=== PATIENT | female | born 1990 | race American Indian/Alaskan Native ===

== ENCOUNTER 2018-08-30 10:55 | Outpatient (CLI) | payer MEDICAID ==
[2018-08-30] MEDS ORDERED: LACTATED RINGERS 500 ML IV ONE (11:02)
[2018-08-30 11:18] VITALS: BP 116/70
[2018-08-30 11:53] LABS: Bacteria,Urine 1+ /HPF (Negative); Bilirubin,Urine NEG (Negative); Blood,Urine NEG (Negative); Color,Urine Yellow (Yellow); Mucus,Urine FEW /HPF; Protein,Urine <15 mg/dL mg/dL (Negative)
[2018-08-30] MEDS ORDERED: VISTARIL PO ONE (12:45)
== END 2018-08-30 12:47 | disposition home or self-care (01) ==
LOC: TRG 10:55
PROVIDERS: ATTEND Obstetrics & Gynecology
DX: O47.03 False labor before 37 completed weeks of gestation, third trimester (principal); O24.419 Gestational diabetes mellitus in pregnancy, unspecified control; Z3A.37 37 weeks gestation of pregnancy
CPT/HCPCS: 81001; Q0177

== ENCOUNTER 2018-09-13 17:07 | Inpatient (IN) | payer MEDICAID ==
[2018-09-13] MEDS: LACTATED RINGERS 1,000 ML IV SCH ×2 (22:00→23:00)
--- NOTE | 2018-09-13 22:13 | History and Physical Report ---
History of Present Illness Date of examination: 09/13/18 Date of admission: 09/13/18 20:27 Chief complaint: Intense labor pains History of present illness: 28yo Fe GLO . Presents with regular contractions and SVE /-2. Pt received care at [facility]. records are not available. Pt Reports being co-managed with [facility]. Reports being told she is GDM (diet controlled)but has never checked her BS. Accucheck 88 on admission, denies any other issues with this . Reports GBS to be Negative. 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 denies: lives with family, smoking, alcohol abuse, prescription drug abuse - Obstetrical History Expected Date of Delivery: 09/16/18 Actual Gestation: 39 Week(s) 5 Day(s) : 5 (Pt "uncertain about number of pregnancies" ) Para: 1 Hx # Term Pregnancies: 1 Number of Pregnancies: 3 (Pt "thinks 20 weeks x2, 27 weeks) Number of Living Children: 1 Medications and Allergies Allergies Allergy/AdvReac Type Severity Reaction Status Date / Time No Known Allergies Allergy Verified 08/30/18 11:02 Home Medications Medication Instructions Recorded Confirmed Last Taken Type HYDROcodone/APAP 5-325 [Sweet 1 each PO Q8HR PRN #10 tablet 07/25/13 Unknown Rx 5-325 mg TAB] Review of Systems Eyes: normal appearance Cardiovascular: no chest pain, no shortness of breath Respiratory: no shortness of breath Breasts: normal Gastrointestinal: no nausea, no vomiting, no diarrhea, no constipation Genitourinary: normal appearance, no leakage of fluid Integumentary: no rash, no sores, no lesions Endocrine: other (GDM-diet controlled) - Vital Signs Vital signs: Vital Signs Pulse BP 88 111/69 09/13/18 17:27 09/13/18 17:27 Temp Pulse Resp BP Pulse Ox 99.0 F 90 18 125/63 100 09/13/18 21:44 09/13/18 21:44 09/13/18 21:54 09/13/18 21:44 09/13/18 21:54 - Physical Exam Breasts: Positive: normal Cardiovascular: Regular rate, Normal S1, Normal S2, No murmurs Lungs: Positive: Clear to auscultation, Normal air movement Abdomen: Positive: normal appearance, soft, normal bowel sounds. Negative: distention Genitourinary (Female): Positive: normal external genitalia, normal perenium Vulva: right: normal Vagina: Positive: normal moisture Uterus: Positive: enlarged (gravid) Anus/Rectum: Positive: normal perianal skin Extremities: Positive: normal Deep Tendon Reflex Grade: Normal +2 - Obstetrical FHR: category 1 Uterine Contraction Monitor Mode: External Cervical Dilatation: 4 (Per senior biostatistician) Cervical Effacement Percentage: 80 station: -2 Uterine Contraction Frequency (min): 2-3 Uterine Contraction Pattern: Regular Uterine Tone Measurement Phase: Resting Uterine Contraction Intensity: Moderate Results Result Diagrams: 09/13/18 22:58 All other labs normal. Assessment and Plan A: Term IUP at 39w5d Active labor GBS Negative (Per pt) Category 1 tracing GDM; diet controlled (per pt). BS 88 on admission P: Admit to L&D, routine labor orders May have IV pain med/Epidural PRN Anticipate
[2018-09-13] MEDS ORDERED: SUBLIMAZE IV PRN (22:47)
[2018-09-13] MEDS ORDERED: LACTATED RINGERS 2,000 ML ONE (22:51)
[2018-09-13 23:37] LABS: Basophils % (Auto) 0.4 % (0.0-1.8); Eosinophils # (Auto) 0.3 K/mm3 (0.0-0.4); Eosinophils % (Auto) 3.5 % (0.0-4.3); Hematocrit 28.9 % (30.3-42.9); Hemoglobin 9.6 gm/dl (10.1-14.3); Lymphocytes # (Auto) 1.4 K/mm3 (1.2-5.4); Lymphocytes % (Auto) 15.6 % (13.4-35.0); Mean Corpuscular HGB Conc 33 % (30-34); Mean Corpuscular Volume 79 fl (79-97); Monocytes # (Auto) 0.9 K/mm3 (0.0-0.8); Monocytes % (Auto) 9.5 % (0.0-7.3); Platelet Count 132 K/mm3 (140-440); Red Blood Count 3.67 M/mm3 (3.65-5.03); Red Cell Distribution Width 15.6 % (13.2-15.2)
[2018-09-13] MEDS ORDERED: fentaNYL-BUPIV 2 MCG/ML-0.125% 200 MCG/100 ML BAG EPIDURAL SCH (23:45)
[2018-09-13] MEDS ORDERED: NARCAN 2 MG/2 ML IV PRN (23:54)
--- NOTE | 2018-09-13 23:57 | Anesthesia Consultation ---
Anesthesia Consult and Med Hx - Airway Anesthetic Teeth Evaluation: Good ROM Head & Neck: Adequate Mental/Hyoid Distance: Adequate Mallampati Class: Class I Intubation Access Assessment: Probably Good - Pulmonary Exam CTA: Yes - Cardiac Exam Cardiac Exam: RRR - Pulmonary Hx Asthma: No COPD: No Hx Pneumonia: No - Cardiovascular System Hx Hypertension: No Hx Coronary Artery Disease: No - Central Nervous System Hx Neuromuscular Disorder: No Hx Seizures: No Hx Psychiatric Problems: No - Gastrointestinal Hx Ulcer: No - Endocrine Hx Renal Disease: No Hx End Stage Renal Disease: No Hx Cirrhosis: No Hx Liver Disease: No Hx Insulin Dependent Diabetes: No Hx Non-Insulin Dependent Diabetes: No Hx Hypothyroidism: No Hx Hyperthyroidism: No - Hematic Hx Anemia: No Hx Sickle Cell Disease: No - Other Systems Hx Alcohol Use: No Hx Obesity: No
[2018-09-14] MEDS: LACTATED RINGERS 1,000 ML IV SCH
[2018-09-14 00:04] LABS: Hepatitis C Virus Antibody Non-Reactive (NonReactive)
[2018-09-14] MEDS ORDERED: LIDOCAINE 1.5%/EPI 1:200,000 INFILTRATI ONE ×2 (00:08)
[2018-09-14] MEDS ORDERED: LACTATED RINGERS 1,000 ML ONE (00:37)
[2018-09-14] MEDS ORDERED: PITOCin/NS 30 UNIT/500ML 30,000 MILLIUNITS/500 ML BAG IV ONE (00:45)
[2018-09-14 01:31] LABS: Amphetamine Screen,Urine PRESUMPTIVE NEGATIVE; Benzodiazepines Screen,Urine PRESUMPTIVE NEGATIVE; Cocaine Screen,Urine PRESUMPTIVE NEGATIVE; Methadone Screen,Urine PRESUMPTIVE NEGATIVE; Opiate Screen,Urine PRESUMPTIVE NEGATIVE
[2018-09-14] MEDS ORDERED: ZOFRAN ONE (01:44)
[2018-09-14 01:56] LABS: Cannabinoid Screen,Urine PRESUMPTIVE POSITIVE
[2018-09-14] MEDS ORDERED: NACL 0.9% 1000 ML 0 ML ONE (02:24)
--- NOTE | 2018-09-14 05:56 | Procedure Note ---
OB Delivery Note - Delivery Date of Delivery: 09/14/18 (04:27) Surgeon: ARTURO OWENS (AMAN) Estimated blood loss: 100cc - Vaginal Delivery presentation: vertex Delivery position: OA Delivery induction: none Delivery augmentation: rupture of membranes, pitocin Delivery monitor: external FHT, external uterine Route of delivery: (04:27) Delivery placenta: spontaneous (04:32) Delivery cord: 3 umbilical vessels Episiotomy: none Delivery laceration: none Anesthesia: epidural Delivery comments: Viable female infant A[place]IN position over intact perineum at 04:27. Strong lusty cry. Infant [id number] on mothers abdomen. Delayed cord clamping, then cut by FOB with my guidance. Cord blood collected per protocol. Spontaneous hankins delivery of intact placenta at 04:32. 3VC. No tears or lacerations. FF@U-1. EBL 100cc. Placenta discarded. Infant and mother left in stable condition in L&D. - A at 1 minute: 8 at 5 minutes: 9 Gender: Female (2799 grams, 8lbs 6oz, 21")
[2018-09-14] MEDS ORDERED: ZOFRAN IV PRN (05:58)
[2018-09-14] MEDS ORDERED: TYLENOL PO PRN (05:58)
[2018-09-14] MEDS ORDERED: BENADRYL PO PRN (05:58)
[2018-09-14] MEDS ORDERED: PHENERGAN PO PRN (05:58)
[2018-09-14] MEDS ORDERED: MILK OF MAGNESIA PO PRN (05:58)
[2018-09-14] MEDS ORDERED: TUCKS PAD TP PRN (05:58)
[2018-09-14] MEDS ORDERED: DULCOLAX PR PRN (05:58)
[2018-09-14] MEDS ORDERED: LANSINOH TP PRN (05:58)
[2018-09-14] MEDS ORDERED: SODIUM CHLORIDE FLUSH SYRINGE 10 ML IV NR (06:00)
[2018-09-14] MEDS ORDERED: XYLOCAINE 2%/ EPI 1:200,000 INFILTRATI ONE (06:28)
[2018-09-14] MEDS: IBUPROFEN PO SCH ×3 (07:07→18:56)
--- NOTE | 2018-09-14 07:22 | Post Anesthesia Evaluation ---
- Post Anesthesia Evaluation Patient Participated: Yes Airway Patent: Yes Stable Respiratory Function: Yes Nausea/Vomiting: No Temp > 96.8F: Yes Pain Manageable: Yes Adequeate Hydration: Yes Anesthesia Complications: No Block Receding Appropriately: Yes Patient on Ventilator: No
[2018-09-14] MEDS: NORCO 5/325 PO PRN (21:48)
[2018-09-15] MEDS: IBUPROFEN PO SCH ×3 (01:42→16:27)
[2018-09-15 07:27] LABS: Hematocrit 25.2 % (30.3-42.9)
[2018-09-15] MEDS: NORCO 5/325 PO PRN ×2 (10:20→20:10)
--- NOTE | 2018-09-15 12:22 | Progress Note ---
Assessment and Plan A: day 1 S/P spontaneous vaginal delivery. Anemia secondary to and blood loss. Fatigue. Heart murmur. P: Iron supplementation ordered. Encouraged patient to get help when ambulating. Repeat H&H today. Hospitalist consult. Subjective - Subjective Date of service: 09/15/18 Principal diagnosis: day 1 S/P spontaneous vaginal delivery Interval history: day 1 S/P spontaneous vaginal delivery. Patient reports fatigue. She denies shortness of breath with rest or exertion. She denies chest pain or palpitations or dizziness. Patient denies cough, abdominal pain, leg pain, or heavy vaginal bleeding. Patient is voiding without difficulty; feels tired when she ambulates. Tolerating a regular diet without nausea or vomiting. She is anemic and iron supplements ordered. Patient reports: appetite normal, voiding normally, pain well controlled, flatus, ambulating normally, nauseated : doing well Objective - Vital Signs Latest vital signs: Vital Signs Temp Pulse Resp BP BP Pulse Ox 09/15/18 10:20 20 09/15/18 09:10 98.4 F 72 18 110/68 09/15/18 00:12 98.4 F 90 16 114/71 98 09/14/18 17:10 98.4 F 99 H 18 113/68 97 Intake and Output 09/14/18 09/15/18 09/15/18 23:59 07:59 15:59 Intake Total 1680 360 Output Total 450 400 Balance 1230 -40 Intake: Oral 960 360 Intake, Free Water 720 Output: Urine 450 400 Void 450 400 Other: Total, Intake Amount 480 360 Total, Output Amount 450 400 # Voids Void 3 - Exam Cardiovascular: Present: Regular rate, Normal S1, Normal S2, Other (Murmur heard) Lungs: Present: Clear to auscultation Abdomen: Present: normal appearance, soft. Absent: distention, tenderness, guarding, rigidity Uterus: Present: normal, firm, fundal height below umbilicus. Absent: bogginess, tenderness Extremities: Present: normal, edema (mild pedal edema bilaterally). Absent: tenderness - Labs Labs: Abnormal lab results 09/15/18 Range/Units 07:07 Hgb 8.0 L (10.1-14.3) gm/dl Hct 25.2 L (30.3-42.9) %
[2018-09-15] MEDS: FEOSOL PO SCH (13:47)
[2018-09-15 18:15] LABS: Hematocrit 26.9 % (30.3-42.9); Hemoglobin 8.5 gm/dl (10.1-14.3)
--- NOTE | 2018-09-15 19:01 | Consultation ---
History of Present Illness - Reason for Consult Consult date: 09/15/18 Cardiac murmur Requesting physician: ARTURO OWENS - History of Present Illness 28 YO Female with S/P . Consult placed by AMAN Owens for new onset heart murmur. Pt seen and evaluated in her room. Pt denies fever, chills, CP, Palpitatons, NVD, Dizziness, Syncope, Shortness of breath, cough, dypsnea on exertion, dypsnea at rest. No reported nursing events. Past History Past Medical History: No medical history, other (reviewed) Past Surgical History: No surgical history, Other (reviewed) Social history: no significant social history, single, IV drug use. denies: lives with family, smoking, alcohol abuse, prescription drug abuse Family history: no significant family history (reviewed) Medications and Allergies Allergies Allergy/AdvReac Type Severity Reaction Status Date / Time No Known Allergies Allergy Verified 08/30/18 11:02 Home Medications Medication Instructions Recorded Confirmed Last Taken Type HYDROcodone/APAP 5-325 [Ledbetter 1 each PO Q8HR PRN #10 tablet 07/25/13 Unknown Rx 5-325 mg TAB] Active Meds: Active Medications Acetaminophen (Tylenol) 650 mg PO Q4H PRN PRN Reason: Pain MILD(1-3)/Fever >100.5/MCQUEEN Acetaminophen/Hydrocodone Bitart (Ledbetter 5/325) 2 each PO Q6H PRN PRN Reason: Pain, Moderate (4-6) Last Admin: 09/15/18 10:20 Dose: 2 each Documented by: Bisacodyl (Dulcolax) 10 mg UT BID PRN PRN Reason: Constipation Diphenhydramine HCl (Benadryl) 25 mg PO Q6H PRN PRN Reason: Itching Ferrous Sulfate (Feosol) 325 mg PO BID DUGLAS Last Admin: 09/15/18 13:47 Dose: 325 mg Documented by: Oxytocin/Sodium Chloride (Pitocin/Ns 30 Unit/500ml) 30,000 milliunits in 500 mls @ 1 mls/hr IV DIRECT ONE; Protocol Stop: 10/04/18 20:44 Last Admin: 09/14/18 01:00 Dose: 2 milliunits/min, 2 mls/hr Documented by: Lactated Ringer's (Lactated Ringers) 1,000 mls @ 125 mls/hr IV DIRECT [facility] Last Admin: 09/14/18 00:00 Dose: 125 mls/hr Documented by: Ibuprofen (Motrin) 600 mg PO Q6HR [facility] Last Admin: 09/15/18 16:27 Dose: 600 mg Documented by: Magnesium Hydroxide (Milk Of Magnesia) 30 ml PO HS PRN PRN Reason: Constipation Multi-Ingredient Ointment (Lansinoh) 1 applic TP PRN PRN PRN Reason: Sore Nipples Ondansetron HCl (Zofran) 4 mg IV Q8H PRN PRN Reason: Nausea And Vomiting Promethazine HCl (Phenergan) 25 mg PO Q6H PRN PRN Reason: Nausea And Vomiting Witch Luisa/Glycerin (Tucks Pad) 1 each TP PRN PRN PRN Reason: Hemorrhoid/cleansing/soothing Review of Systems Constitutional: no weight loss, no weight gain, no fever, no chills Ears, nose, mouth and throat: no ear pain, no ear discharge, no tinnitis, no decreased hearing, no nose pain Breasts: no change in shape, no swelling, no mass Cardiovascular: no chest pain, no orthopnea, no palpitations, no rapid/irregular heart beat, no edema, no syncope, no lightheadedness, no shortness of breath, no dyspnea on exertion, no paroxysmal nocturnal dyspnea, no claudication, no phlebitis, no high blood pressure, no leg edema, no decreased exercise tolerance Respiratory: no cough, no cough with sputum, no excessive sputum, no hemoptysis, no shortness of breath Gastrointestinal: no abdominal pain, no vomiting, no diarrhea, no constipation Genitourinary Female: no pelvic pain, no flank pain, no menorrhagia, no dysuria, no urinary frequency, no urgency Rectal: no pain, no incontinence, no bleeding Musculoskeletal: no neck stiffness, no neck pain, no shooting arm pain, no arm numbness/tingling, no shooting leg pain, no leg numbness/tingling Integumentary: no rash, no pruritis, no redness, no sores, no wounds Neurological: no paralysis, no weakness, no parathesias, no numbness, no tingling Psychiatric: no anxiety, no memory loss, no change in sleep habits, no sleep disturbances, no insomnia, no hypersomnia, no change in appetite Endocrine: no cold intolerance, no heat intolerance, no polyphagia, no excessive thirst, no polydipsia, no polyuria Hematologic/Lymphatic: no easy bruising, no easy bleeding Allergic/Immunologic: no urticaria, no allergic rhinitis, no wheezing Exam - Constitutional Vitals: Temp Pulse Resp BP Pulse Ox 98.2 F 87 20 113/58 98 09/15/18 16:15 09/15/18 16:15 09/15/18 16:27 09/15/18 16:15 09/15/18 00:12 General appearance: Present: no acute distress, well-nourished - EENT Eyes: Present: PERRL ENT: hearing intact, clear oral mucosa - Neck Neck: Present: supple, normal ROM - Respiratory Respiratory effort: normal Respiratory: bilateral: CTA - Cardiovascular Heart Sounds: Present: S1 & S2. Absent: rub, click - Extremities Extremities: pulses symmetrical, No edema Peripheral Pulses: within normal limits - Abdominal General gastrointestinal: Present: soft, non-tender, non-distended, normal bowel sounds Female genitourinary: Present: normal - Integumentary Integumentary: Present: clear, warm, dry - Musculoskeletal Musculoskeletal: gait normal, strength equal bilaterally - Psychiatric Psychiatric: appropriate mood/affect, intact judgment & insight - Neurologic Neurologic: CNII-XII intact, moves all extremities Results - Labs CBC & Chem 7: 09/15/18 17:46 Labs: Abnormal lab results 09/15/18 09/15/18 Range/Units 07:07 17:46 Hgb 8.0 L 8.5 L (10.1-14.3) gm/dl Hct 25.2 L 26.9 L (30.3-42.9) % Assessment and Plan - Patient Problems (1) Cardiac murmur Current Visit: Yes Status: Suspected Plan to address problem: Echo, monitor BP q shift, EKG.
[2018-09-16] MEDS: IBUPROFEN PO SCH ×3 (06:45→18:50)
--- NOTE | 2018-09-16 12:20 | Progress Note ---
Assessment and Plan A: day 2 S/P spontaneous vaginal delivery. Anemia secondary to and blood loss. Heart murmur. P: Continue iron supplementation. Plan discharge home when OK with MD. Subjective - Subjective Date of service: 09/16/18 Principal diagnosis: day 2 S/P spontaneous vaginal delivery Interval history: day 2 S/P spontaneous vaginal delivery. Patient is doing well. She reports a small amount of lochia and denies clots. She is voiding without difficulty, ambulating well, tolerating a regular diet without nausea or vomiting. Patient denies headache, dizziness, chest pain, shortness of breath, cough, leg pain, abdominal pain, or heavy vaginal bleeding. Patient states fatigue is resolving. Patient reports: appetite normal, voiding normally, pain well controlled, flatus, ambulating normally, no dizzy ambulation, no nauseated [place]: doing well Objective - Vital Signs Latest vital signs: Vital Signs Temp Pulse Resp BP BP Pulse Ox 09/16/18 09:10 98 F 70 20 110/60 09/16/18 00:14 97.8 F 73 17 112/62 98 09/15/18 16:27 20 09/15/18 16:15 98.2 F 87 18 113/58 Intake and Output 09/15/18 09/16/18 09/16/18 22:59 07:59 15:59 Intake Total 360 Output Total Balance 360 Intake: Oral 360 Output: Urine Void Other: Total, Intake Amount 360 Total, Output Amount # Voids Void 1 # Bowel Movements - Exam Cardiovascular: Present: Regular rate, Normal S1, Normal S2, Other (murmur) Lungs: Present: Clear to auscultation Abdomen: Present: normal appearance, soft. Absent: distention, tenderness, guarding, rigidity Uterus: Present: normal, firm, fundal height below umbilicus Extremities: Present: normal. Absent: tenderness, edema - Labs Labs: Abnormal lab results 09/15/18 Range/Units 17:46 Hgb 8.5 L (10.1-14.3) gm/dl Hct 26.9 L (30.3-42.9) %
[2018-09-16] MEDS: FEOSOL PO SCH (12:44)
[2018-09-16 17:58] VITALS: BP 128/66
--- NOTE | 2018-09-20 11:20 | Discharge Summary ---
Providers - Providers Date of Admission: 09/13/18 20:27 Date of discharge: 09/16/18 Attending physician: BECKI MELTON MD 09/15/18 12:25 Consult to Physician [CONS] Urgent Comment: Consulting Provider: MIKAEL VELÁSQUEZ Physician Instructions: Reason For Exam: fatigue and new heart murmur Primary care physician: BECKI MELTON MD Hospitalization Reason for admission: active labor Disposition: DC- TO HOME OR SELFCARE Plan - Provider Discharge Summary Additional instructions: [] Smoking cessation referral if applicable(refer to patient education folder for contact #) [] Refer to [facility] Booklet Call your doctor immediately for: * Fever > 100.5 * Heavy vaginal bleeding ( >1 pad per hour) * Severe persistent headache * Shortness of breath * Reddened, hot, painful area to leg or breast * Drainage or odor from incision. * Keep incision clean and dry at all times and follow doctor's instructions regarding bathing/showering - Follow up plan Follow up: BECKI MELTON MD [Primary Care Provider] - 7 Days
== END 2018-09-16 20:30 | disposition home or self-care (01) | DRG 774 ==
LOC: TRG 17:07 → LD 20:27 → OB 09-14 06:32
PROVIDERS: ADMIT Obstetrics & Gynecology; ATTEND Obstetrics & Gynecology
PROC: 10E0XZZ Delivery of Products of Conception, External Approach (ICD-10-PCS; principal; 2018-09-14)
PROC: 3E0R3BZ Introduction of Anesthetic Agent into Spinal Canal, Percutaneous Approach (ICD-10-PCS; 2018-09-14)
PROC: 00HU33Z Insertion of Infusion Device into Spinal Canal, Percutaneous Approach (ICD-10-PCS; 2018-09-14)
DX: O24.420 Gestational diabetes mellitus in childbirth, diet controlled (principal); O99.43 Diseases of the circulatory system complicating the puerperium; Z3A.39 39 weeks gestation of pregnancy; Z37.0 Single live birth; R01.1 Cardiac murmur, unspecified
CPT/HCPCS: 36415; 80307; 82962; 85014; 85018; 85025; 86592; 86706; 86762; 86803; 86850; 86900; 86901; 87806; 93005; 93010; 93306; G0378; A6250; J2405; J2590; J3010; J7030; J7120